=== PATIENT | male | born 1955 | race Caucasian/White ===

== ENCOUNTER → 2017-09-08 | Day surgery (SDC) | payer BC ==
[~2017-09-08] VITALS: Ht 177.8 cm; Wt 74.5 kg
[~2017-09-08] MED LIST: ACETAMINOPHEN 1000 MG/100 ML 100 ML IV SCH; BUPIVACAINE LIPOSOME PF 1.3% 20 ML VIAL ONE; BUPIVACAINE/EPINEPHRINE 0.5% 50 ML VIAL ONE; CHLORHEXIDINE GLUCONATE 2 % 1 PACK (2 CLOTHS) TOPICAL PRN; CYCL10TA PO; DO NOT ADM ANY ANTICOAGULANT DRUGS PRN; FLUT50SP EACH NARE; KETOROLAC TROMETHAMINE 30 MG/ML (IVP) VIAL IV PUSH ONE; LACTATED RINGER'S 1000 ML IV PRN; METOPROLOL TARTRATE 25 MG TAB PO PRN; MIDAZOLAM HCL 2 MG/2 ML VIAL IV ONE; MORPHINE SULFATE 4 MG/ML INJ IV PUSH PRN; MULT-367 PO; ONDANSETRON HCL 4 MG/2 ML VIAL IV ONE; ONDANSETRON HCL 4 MG/2 ML VIAL IV PUSH PRN; OXYC1TAB36 PO; POVIDONE IODINE 5% (ANTISEPSIS KIT) 4 APPLICATIONS EACH NARE PRN; PROPOFOL 200 MG/20 ML AMP IV ONE; SODIUM CHLORID 0.9% 500 ML IV PRN; SODIUM CHLORIDE 0.9% 20 ML VIAL IV ONE; SODIUM CHLORIDE 0.9% FLUSH 10 ML FLUSH IV FLUSH PRN; SODIUM CHLORIDE 0.9% FLUSH 10 ML FLUSH IV FLUSH SCH; ceFAZolin 2 GM PREMIX 50 ML IV SCH; oxyCODONE/ACETAMINOPHEN 5 MG/325 MG TAB PO PRN
[2017-09-08 11:30] VITALS: BP 160/86; PULSE 62; RESP 18; TEMP 97.6; O2SAT 100
--- NOTE | 2017-09-08 13:35 | PD.OP ---
cc: Efrain Vila MD; Ced Corral MD Operative Report Date of Surgery: Sep 08, 2017 Preoperative Diagnosis: Right inguinal hernia Postoperative Diagnosis: Right inguinal hernia Procedure: Repair of right inguinal hernia with pro-public relations specialist mesh Anesthesia: Local/MAC Surgeon: Efrain Vila Plastics Technician(s): Haley Doss CFA Operation and Findings: Operative findings and procedure: The patient was found to have a moderate suction of the inguinal floor consistent with a direct inguinal hernia. There is no evidence of indirect inguinal hernia. Patient was brought to the operating room and after satisfactory sedation by anesthesia the right groin was prepped and draped in usual sterile fashion. A combination of 20 mL's of Exparel and 20 mL's of saline was used to infiltrate the skin for local anesthesia. A transverse right inguinal incision was made, carried out sharply through the subcutaneous tissue, with cautery being used for hemostasis. Incision was deepened to the external oblique fascia which was then anesthetized then incised in the direction of its fibers down to and through the external ring. The underside of the fascia was cleaned and the spermatic cord was isolated with a Noah drain. An indirect hernia was searched for, with none being identified. The inguinal floor was then cleared and the direct inguinal hernia was identified. After clearing the inguinal floor adhesions the internal oblique muscle and fascia were brought into close approximation with the shelving edge of the inguinal ligament to re-create the inguinal floor. After re-creation of the internal ring with this fashion a piece of pro-public relations specialist mesh was cut to the appropriate shape and then secured anterior to the inguinal floor by pressing its posterior Vicryl hooks into the surrounding tissue. The mesh was affixed to the pubic bone with a single 0 Prolene after which hemostasis was checked for and found be satisfactory. The external oblique fascia was closed with a running 3-0 Vicryl suture. The subcutaneous tissue was closed with interrupted 3-0 Vicryl suture and the remaining local anesthesia was infiltrated into the surrounding tissues for pain control. The skin was then closed with interrupted 4-0 PDS subcutaneous stitches. Steri-Strips were applied and the patient then awakened and taken from the operating room, in satisfactory condition, having tolerated the procedure without problem. Estimated blood loss was less than 5 mL's. The instrument, sponge, needle counts were reported as being correct 2 at the end of the procedure. Efrain Vila MD Sep 08, 2017 13:35
== END | disposition home or self-care (01) ==
LOC: HSDC 06:24
PROVIDERS: ATTEND Surgery
DX: K40.90 Unilateral inguinal hernia, without obstruction or gangrene, not specified as recurrent (principal); G89.4 Chronic pain syndrome; E78.5 Hyperlipidemia, unspecified; M54.9 Dorsalgia, unspecified
CPT/HCPCS: 00830; 49505; C1781; C9290; J0131; J0690; J1885; J7120; J2250; J2405